=== PATIENT | male | born 1970 | race African-American/Black ===

== ENCOUNTER → 2021-05-19 | Emergency (ER) | payer OTHER ==
[~2021-05-19] VITALS: Ht 180.3 cm; Wt 72.6 kg
[~2021-05-19] MED LIST: KETO10TA2 PO; NORFLEX100MG PO
== END | disposition home or self-care (01) ==
LOC: ER 18:55
DX: R20.0 Anesthesia of skin (principal); M54.9 Dorsalgia, unspecified